=== PATIENT | male | born 1980 | race Caucasian/White ===

== ENCOUNTER 2018-10-01 20:10 | Emergency (ER) | payer SELFPAY ==
[~2018-10-01] VITALS: Ht 167.6 cm; Wt 152.8 kg
[~2018-10-01 20:10] MED LIST: ALBU18HF INHALATION; AZIT250T PO; D-ME473S2 PO; ERYT1OIN6 BOTH EYES; HYDR473S47 PO; IBUP800T48 PO; OSEL75CA23 PO; TRAM50TA2 PO
[2018-10-01 20:25] VITALS: Ht 167.6 cm; Wt 152.8 kg
[2018-10-01] MEDS ORDERED: morphine 4 MG/ML VIAL IV STA (22:34)
[2018-10-01] MEDS ORDERED: SOD CHLORIDE 0.9% 500 ML IV STA (22:34)
[2018-10-01] MEDS ORDERED: ONDANSETRON 4 MG INJ IV STA (22:34)
[2018-10-01] MEDS ORDERED: TETRACAINE 0.5% 4 ML OPH BOTH EYES ONE (23:00)
[2018-10-01] MEDS ORDERED: TETRACAINE 0.5% 15 ML OPH BOTH EYES ONE (23:30)
[2018-10-02 00:42] VITALS: BP 142/75; PULSE 70; RESP 16
== END 2018-10-02 01:59 | disposition home or self-care (01) ==
LOC: E/R 20:10
DX: H10.9 Unspecified conjunctivitis (principal); I10 Essential (primary) hypertension
CPT/HCPCS: 36415; 70450; 71045; 80048; 84484; 85025; 85610; 85730; 93005; 96374; 96375; 99285; J2270; J2405; J7040